=== PATIENT | female | born 1985 | race African-American/Black ===

== ENCOUNTER 2020-02-10 14:32 | Emergency (ER) | payer MEDICAID, MEDICARE ==
[~2020-02-10] VITALS: Ht 152.4 cm; Wt 59.0 kg
[2020-02-10 15:27] VITALS: BP 123/81
== END 2020-02-10 15:48 | disposition left against medical advice (07) ==
LOC: ER 14:32
DX: R10.0 Acute abdomen (principal); R03.0 Elevated blood-pressure reading, without diagnosis of hypertension; F12.90 Cannabis use, unspecified, uncomplicated
CPT/HCPCS: 93005; 99283

== ENCOUNTER 2020-02-11 10:20 | Emergency (ER) | payer MEDICAID ==
[~2020-02-11] VITALS: Ht 152.4 cm; Wt 58.0 kg
[2020-02-11 11:07] VITALS: BP 124/82
[2020-02-11 11:48] LABS: BASOPHILS % 0.7 % (0.0-2.0); EOSINOPHILS % 5.6 % (0.0-5.0); HEMATOCRIT. 42.6 % (36.0-48.0); HEMOGLOBIN. 14.3 g/dL (12.0-16.0); LYMPHOCYTES % 26.9 % (20.0-50.0); MEAN CORPUSCULAR VOLUME 89.3 fL (81.0-99.0); MEAN PLATELET VOLUME 9.9 fl (7.4-10.4); MONOCYTES % 9.5 % (2.0-8.0); NEUTROPHILS % 57.3 % (40.0-76.0); PLATELET 216 x1000/uL (130-400); RED BLOOD CELL COUNT 4.77 mill/uL (4.2-5.4); RED CELL DISTRIBUTION WIDTH 13.7 % (11.6-14.6)
[2020-02-11 11:52] LABS: CHLORIDE 107 mEq/L (98-107)
[2020-02-11 11:56] LABS: PROTHROMBIN TIME 10.7 sec (9.6-11.0)
== END 2020-02-11 12:56 | disposition home or self-care (01) ==
LOC: ER 10:33
DX: R10.11 Right upper quadrant pain (principal); F12.10 Cannabis abuse, uncomplicated
CPT/HCPCS: 36415; 76705; 80053; 85025; 93005; 99285

== ENCOUNTER 2020-12-03 10:39 | Emergency (ER) | payer MEDICAID ==
[~2020-12-03] VITALS: Ht 152.4 cm; Wt 58.0 kg
[2020-12-03 10:56] VITALS: BP 132/82
[2020-12-03] MEDS ORDERED: NAPR-1176 MT (12:08)
== END 2020-12-03 12:26 | disposition home or self-care (01) ==
LOC: ER 10:39
DX: M62.838 Other muscle spasm (principal); V47.5XXA Car driver injured in collision with fixed or stationary object in traffic accident, initial encounter; Y93.89 Activity, other specified; Y92.488 Other paved roadways as the place of occurrence of the external cause
CPT/HCPCS: 81025; 99282

== ENCOUNTER 2020-12-10 16:29 | Emergency (ER) | payer MEDICAID ==
[~2020-12-10] VITALS: Ht 152.4 cm; Wt 58.0 kg
[~2020-12-10 16:29] MED LIST: NAPR-1176 MT
[2020-12-10] MEDS ORDERED: KETOROLAC 60MG/2ML VIAL IM ONE (17:15)
[2020-12-10 17:37] VITALS: BP 133/82
== END 2020-12-10 18:47 | disposition home or self-care (01) ==
LOC: ER 16:29
DX: S39.012A Strain of muscle, fascia and tendon of lower back, initial encounter (principal); S29.012A Strain of muscle and tendon of back wall of thorax, initial encounter; Z79.899 Other long term (current) drug therapy; V49.88XA Car occupant (driver) (passenger) injured in other specified transport accidents, initial encounter; Y93.89 Activity, other specified; Y92.89 Other specified places as the place of occurrence of the external cause; Y99.8 Other external cause status
CPT/HCPCS: 72070; 72100; 81025; 96372; 99284; J1885

== ENCOUNTER 2022-09-02 14:56 | Emergency (ER) | payer MEDICAID ==
[~2022-09-02] VITALS: Ht 152.4 cm; Wt 53.2 kg
[2022-09-02 15:00] VITALS: BP 133/87
[2022-09-02] MEDS ORDERED: ACETAMINOPHEN 325MG TABLET PO ONE (16:00)
[2022-09-02] MEDS ORDERED: METHOCARBAMOL 500MG TABLET PO ONE (16:00)
[2022-09-02] MEDS ORDERED: HYDR-4001 MT (16:31)
== END 2022-09-02 16:42 | disposition home or self-care (01) ==
LOC: ER 14:56
DX: S12.9XXA Fracture of neck, unspecified, initial encounter (principal); V09.20XA Pedestrian injured in traffic accident involving unspecified motor vehicles, initial encounter; Y93.89 Activity, other specified; Y92.89 Other specified places as the place of occurrence of the external cause; Y99.8 Other external cause status
CPT/HCPCS: 99283

== ENCOUNTER 2022-11-11 09:33 | Emergency (ER) | payer MEDICAID ==
[~2022-11-11] VITALS: Ht 152.4 cm; Wt 54.0 kg
[~2022-11-11 09:33] MED LIST changes: +HYDR-4001 MT
[2022-11-11 09:38] VITALS: O2SAT 100
[2022-11-11] MEDS ORDERED: KETOROLAC 30MG/ML VIAL IM ONE (11:00)
[2022-11-11] MEDS ORDERED: LIDOCAINE 5% PATCH TOP SCH (11:00)
[2022-11-11] MEDS ORDERED: NEOM1PAC6 TP (11:30)
[2022-11-11] MEDS ORDERED: LIDO700A15 TP (11:30)
[2022-11-11 12:04] VITALS: BP 138/89; PULSE 65; RESP 18; TEMP 98.6
== END 2022-11-11 12:10 | disposition home or self-care (01) ==
LOC: ER 09:33
DX: M54.2 Cervicalgia (principal); Z48.02 Encounter for removal of sutures
CPT/HCPCS: 99283; 96372; J1885

== ENCOUNTER 2024-06-09 15:06 | Emergency (ER) | payer MEDICAID ==
[~2024-06-09] VITALS: Ht 152.4 cm; Wt 57.7 kg
[~2024-06-09 15:06] MED LIST changes: +LIDO700A15 TP; +NEOM1PAC6 TP
[2024-06-09 15:22] VITALS: TEMP 36.8; O2SAT 99
[2024-06-09 15:44] LABS: BASOPHILS % 0.9 % (0.0-2.0); EOSINOPHILS % 1.4 % (0.0-5.0); HEMATOCRIT. 34.5 % (36.0-48.0); HEMOGLOBIN. 11.2 g/dL (12.0-16.0); LYMPHOCYTES % 23.1 % (20.0-50.0); MEAN CORPUSCULAR HEMOGLOBIN 27.9 pg (28.0-32.0); MEAN CORPUSCULAR HGB CONC 32.6 g/dL (31.0-37.0); MEAN CORPUSCULAR VOLUME 85.5 fL (81.0-99.0); MEAN PLATELET VOLUME 9.3 fl (7.4-10.4); MONOCYTES % 8.3 % (2.0-8.0); NEUTROPHILS % 66.3 % (40.0-76.0); PLATELET 293 x1000/uL (130-400); RED BLOOD CELL COUNT 4.03 mill/uL (4.2-5.4); RED CELL DISTRIBUTION WIDTH 15.7 % (11.6-14.6); WHITE BLOOD COUNT 5.5 x1000/uL (4.5-11.0)
[2024-06-09 15:49] LABS: CHLORIDE 105 mEq/L (98-107); POTASSIUM 4.1 mEq/L (3.5-5.1)
[2024-06-09 15:50] LABS: CARBON DIOXIDE 24 mEq/L (21-32); SODIUM 135 mEq/L (136-145)
[2024-06-09 15:51] LABS: CALCIUM 9.1 mg/dL (8.7-10.4)
[2024-06-09 15:55] LABS: CREATININE 0.6 mg/dL (0.6-1.0); GLUCOSE 91 mg/dL (70-105)
[2024-06-09 15:56] LABS: UREA NITROGEN BLOOD 7 mg/dL (9-23)
[2024-06-09 15:57] LABS: ALANINE AMINOTRANSFERASE < 7 IU/L (10-49); ASPARTATE AMINOTRANSFERASE 10 IU/L (<34)
[2024-06-09 15:58] LABS: BILIRUBIN TOTAL 0.3 mg/dL (0.1-1.0); PROTEIN TOTAL 7.1 g/dL (6.0-8.3)
[2024-06-09 16:03] LABS: HCG SCREEN POSITIVE
[2024-06-09] MEDS: ACETAMINOPHEN 325MG TABLET PO ONE (16:06)
[2024-06-09 16:33] LABS: ALANINE AMINOTRANSFERASE < 7 IU/L (10-49); BILIRUBIN TOTAL 0.3 mg/dL (0.1-1.0)
[2024-06-09 16:34] LABS: ASPARTATE AMINOTRANSFERASE 10 IU/L (<34); PROTEIN TOTAL 7.1 g/dL (6.0-8.3)
[2024-06-09 16:49] LABS: BILIRUBIN DIRECT < 0.1 mg/dL (<=3.0)
[2024-06-09 19:38] LABS: CLARITY URINE CLEAR (CLEAR); COLOR URINE YELLOW (YELLOW); GLUCOSE URINE NEGATIVE (NEGATIVE); KETONES URINE NEGATIVE (NEGATIVE); LEUKOCYTE ESTERASE URINE NEGATIVE (NEGATIVE); NITRITE URINE NEGATIVE (NEGATIVE); OCCULT BLOOD URINE NEGATIVE (NEGATIVE); PH URINE 6.5 (4.5-8.0); PROTEIN URINE NEGATIVE (NEGATIVE); SPECIFIC GRAVITY URINE 1.005 (1.005-1.030); UROBILINOGEN URINE 0.2 E.U./dL (0.2-1.0)
[2024-06-09 20:17] VITALS: BP 131/82; PULSE 82; RESP 19; O2SAT 99
== END 2024-06-09 20:18 | disposition home or self-care (01) ==
LOC: ER 15:29
DX: O26.891 Other specified pregnancy related conditions, first trimester (principal); R10.2 Pelvic and perineal pain; Z79.1 Long term (current) use of non-steroidal anti-inflammatories (NSAID); Z79.899 Other long term (current) drug therapy; Z3A.09 9 weeks gestation of pregnancy
CPT/HCPCS: 36415; 76801; 80053; 80076; 81003; 84703; 85025; 99284

== ENCOUNTER 2024-06-25 13:34 | Emergency (ER) | payer MEDICAID ==
[~2024-06-25] VITALS: Ht 152.4 cm; Wt 57.0 kg
[2024-06-25 13:43] VITALS: O2SAT 100
[2024-06-25 13:54] VITALS: BP 127/89; PULSE 83; RESP 16; TEMP 36.7; O2SAT 100
[2024-06-25 15:09] LABS: CHLORIDE 104 mEq/L (98-107); POTASSIUM 4.1 mEq/L (3.5-5.1); SODIUM 134 mEq/L (136-145)
[2024-06-25 15:10] LABS: CALCIUM 9.2 mg/dL (8.7-10.4); CARBON DIOXIDE 23 mEq/L (21-32)
[2024-06-25 15:12] LABS: BASOPHILS % 0.5 % (0.0-2.0); EOSINOPHILS % 1.4 % (0.0-5.0); HEMATOCRIT. 35.3 % (36.0-48.0); HEMOGLOBIN. 11.5 g/dL (12.0-16.0); LYMPHOCYTES % 22.1 % (20.0-50.0); MEAN CORPUSCULAR HEMOGLOBIN 28.4 pg (28.0-32.0); MEAN CORPUSCULAR HGB CONC 32.6 g/dL (31.0-37.0); MEAN CORPUSCULAR VOLUME 87.1 fL (81.0-99.0); MEAN PLATELET VOLUME 9.1 fl (7.4-10.4); MONOCYTES % 8.4 % (2.0-8.0); NEUTROPHILS % 67.6 % (40.0-76.0); PLATELET 245 x1000/uL (130-400); RED BLOOD CELL COUNT 4.05 mill/uL (4.2-5.4); RED CELL DISTRIBUTION WIDTH 15.7 % (11.6-14.6); WHITE BLOOD COUNT 4.6 x1000/uL (4.5-11.0)
[2024-06-25 15:15] LABS: CREATININE 0.5 mg/dL (0.6-1.0); GLUCOSE 83 mg/dL (70-105); UREA NITROGEN BLOOD 7 mg/dL (9-23)
[2024-06-25 15:18] LABS: TROPONIN I HIGH SENSITIVITY < 4 ng/L (3.0-34)
[2024-06-25 15:52] LABS: HCG SCREEN POSITIVE
[2024-06-25 16:58] LABS: CLARITY URINE CLEAR (CLEAR); COLOR URINE YELLOW (YELLOW); GLUCOSE URINE NEGATIVE (NEGATIVE); KETONES URINE 2+ (NEGATIVE); LEUKOCYTE ESTERASE URINE NEGATIVE (NEGATIVE); NITRITE URINE NEGATIVE (NEGATIVE); OCCULT BLOOD URINE NEGATIVE (NEGATIVE); PROTEIN URINE NEGATIVE (NEGATIVE); UROBILINOGEN URINE 0.2 E.U./dL (0.2-1.0)
== END 2024-06-25 18:01 | disposition home or self-care (01) ==
LOC: ER 13:34
DX: K92.1 Melena (principal); Z79.899 Other long term (current) drug therapy; Z79.1 Long term (current) use of non-steroidal anti-inflammatories (NSAID)
CPT/HCPCS: 36415; 80048; 81003; 81025; 84484; 84703; 85025; 86850; 86900; 99283